=== PATIENT | male | born 1960 | race Caucasian/White ===

== ENCOUNTER 2021-05-15 08:20 | Outpatient (RCR) | payer MEDICARE, MEDICAID, SELFPAY ==
--- NOTE | ~2021-05-15 | XR_ITS ---
EXAMINATION: XR FOOT, LEFT CLINICAL INFORMATION: Wound great toe. Assess for osteomyelitis. COMPARISON: None TECHNIQUE: AP, lateral, and oblique views of the left foot. FINDINGS: There is no acute or healing fracture, dislocation, destructive process. No focal periostitis or loss of cortical white line to suggest early osteomyelitis. There is no gas tracking in the soft tissues. No erosive arthropathy. There are bulky posterior and plantar calcaneal spurs with some focal ossification in region of mid plantar fascia. Mild spurring is also present dorsal midfoot an second metatarsal. XR/XR foot LT min 3V IMPRESSION: No focal bony destructive process. No periostitis or gas tracking in soft tissues.
== END 2021-10-28 09:21 | disposition home or self-care (01) ==
LOC: HO.WCC 08:20
PROVIDERS: PCP General Practice; Visit Provider Surgery
DX: E11.621 Type 2 diabetes mellitus with foot ulcer (principal); L97.522 Non-pressure chronic ulcer of other part of left foot with fat layer exposed; E11.51 Type 2 diabetes mellitus with diabetic peripheral angiopathy without gangrene; E11.40 Type 2 diabetes mellitus with diabetic neuropathy, unspecified; L84 Corns and callosities; I10 Essential (primary) hypertension; I25.2 Old myocardial infarction; F17.210 Nicotine dependence, cigarettes, uncomplicated; Z89.422 Acquired absence of other left toe(s); Z95.1 Presence of aortocoronary bypass graft
CPT/HCPCS: 11042; 15275; 29445; 29581; 73630; 99212; Q4187

== ENCOUNTER 2021-10-15 12:24 | Outpatient (REF) | payer MEDICARE, MEDICAID, SELFPAY ==
--- NOTE | ~2021-10-15 | US_ITS ---
EXAMINATION: US SCROTUM CLINICAL INFORMATION: Round rubber-like nontender mass left epididymal head with erythema. COMPARISON: None TECHNIQUE: A sonogram of the scrotum was performed assessing russell-scale appearance and color Doppler flow. Spectral Doppler analysis of the arterial and venous flow were performed in the testes bilaterally. FINDINGS: RIGHT: Right testicle measures 4.4 x 2.5 x 3.6 cm, volume 20.6 mL. No focal testicular parenchymal lesions are visualized. Spectral Doppler analysis of the arterial and venous flow is normal in the right testis. There is a small appendix of testes seen. Right epididymal head is slightly echogenic in texture but otherwise normal. There are small right epididymal cysts. Largest epididymal cyst measuring 0.46 x 0.34 x 0.59 cm. There is a small right hydrocele present. No right varicocele is seen. Right epididymal Doppler flow is normal. LEFT: Left testicle measures 4.6 x 2.4 x 3.2 cm, volume 18.8 mL. There are several epididymal cysts. The largest cyst measures 0.7 x 0.3 x 0.6 cm. Spectral Doppler analysis of the arterial and venous flow is normal in the left testis. There is a small appendix of testes seen. Left epididymal head is normal in size. There is a small hydrocele with echogenic debris. Also visualizedis a left varicocele inferior to the testes. Echogenic calcifications are seen on the left side. Epididymal Doppler flow is normal. US/US scrotum IMPRESSION: 1. Bilateral hydrocele, left varicocele and bilateral epididymal cysts. Clinically palpable left epididymal lesion is likely a cyst. 2. The testes are unremarkable. There are bilateral appendix of the testes seen.
== END 2021-10-15 12:25 | disposition home or self-care (01) ==
LOC: HO.US 12:24
PROVIDERS: PCP General Practice; Visit Provider Nurse Practitioner Family
DX: N50.89 Other specified disorders of the male genital organs (principal)
CPT/HCPCS: 76870

== ENCOUNTER 2022-02-11 13:44 | Outpatient (RCR) | payer MEDICARE, MEDICAID, SELFPAY | END 2022-02-11 15:00 | disposition home or self-care (01) | LOC: HO.WCC 13:44 | PROVIDERS: PCP General Practice; Visit Provider Physician Assistant | DX: T81.31XD Disruption of external operation (surgical) wound, not elsewhere classified, subsequent encounter (principal); T81.49XD Infection following a procedure, other surgical site, subsequent encounter; E11.40 Type 2 diabetes mellitus with diabetic neuropathy, unspecified; F17.210 Nicotine dependence, cigarettes, uncomplicated; I11.0 Hypertensive heart disease with heart failure; I50.9 Heart failure, unspecified; Z79.4 Long term (current) use of insulin; Z89.412 Acquired absence of left great toe | CPT/HCPCS: 99212 ==

== ENCOUNTER 2022-08-26 10:35 | Outpatient (REF) | payer MEDICARE, MEDICAID, SELFPAY ==
--- NOTE | ~2022-08-26 | XR_ITS ---
EXAMINATION: XR TIBIA AND FIBULA, RIGHT CLINICAL INFORMATION: Nonhealing ulcer. COMPARISON: None TECHNIQUE: AP and lateral views of the right tibia and fibula were obtained. FINDINGS: No acute fracture or dislocation. No concerning lytic or blastic osseous lesion. Atherosclerotic calcifications. Possible surgical clip within the medial soft tissues of the lower leg. Correlate for prior surgery. XR/XR tibia fibula RT 2V IMPRESSION: 1. No acute osseous abnormality. 2. No concerning lytic or blastic osseous lesion.
== END 2022-08-26 10:36 | disposition home or self-care (01) ==
LOC: HO.XRAY 10:35
PROVIDERS: PCP General Practice; Visit Provider Family Medicine
DX: L97.911 Non-pressure chronic ulcer of unspecified part of right lower leg limited to breakdown of skin (principal)
CPT/HCPCS: 73590

== ENCOUNTER 2023-12-15 10:52 | Outpatient (REF) | payer MEDICARE, MEDICAID, SELFPAY | END 2023-12-15 10:53 | disposition home or self-care (01) | LOC: HO.HHCL 10:52 | PROVIDERS: Visit Provider General Practice | DX: Z13.89 Encounter for screening for other disorder (principal) ==

== ENCOUNTER 2024-05-19 17:57 | Outpatient (REF) | payer MEDICARE, MEDICAID, SELFPAY | END 2024-05-19 17:58 | disposition home or self-care (01) | LOC: HO.HHCLNP 17:57 | PROVIDERS: Visit Provider Family Medicine | DX: I73.9 Peripheral vascular disease, unspecified (principal); L97.909 Non-pressure chronic ulcer of unspecified part of unspecified lower leg with unspecified severity | CPT/HCPCS: 87070; 87077; 87186; 87205 ==